=== PATIENT | female | born 1940 | race Caucasian/White ===

== ENCOUNTER 2019-09-17 21:58 | Inpatient (IN) ==
--- NOTE | 2019-09-17 21:46 | Diag Imaging Result Doc PS360 ---
CT HEAD/C-SPINE W/O CONTRAST - 09/17/2019 INDICATION: fall COMPARISON: None FINDINGS: Head CT: There is moderate diffuse ventriculomegaly. There is moderate periventricular white matter chronic microvascular ischemia. This also affects the christine. There is probably an old lacunar in the left basal ganglia. No intracranial mass or hemorrhage. The skull is intact. The sinuses are clear. Cervical spine: Alignment is anatomic. No fracture or subluxation. Vertebral body heights and intervertebral disc spaces are preserved. There is advanced multilevel disc and facet degeneration. No significant central canal stenosis. IMPRESSION: No acute injury. This exam was performed using automated exposure control, adjustment of mA or kV according to patient size, and/or use of iterative reconstruction technique Electronically signed by David Ptoter 09/17/2019 9:43 PM
[2019-09-17 22:02] LABS: BASO# 0.03 X1000 (0.0-0.2); BASO% 0.3 % (0.0-0.8); EOS# 0.32 X1000 (0.0-0.7); EOS% 3.1 % (0.0-10.0); HEMATOCRIT 36.2 % (37.0-47.0); LYMPH# 2.49 X1000 (1.2-3.4); LYMPH% 24.5 % (20.5-51.1); MCHC 30.4 g/dL (33-37); MCV 92.1 FL (81-99); MONO# 0.94 X1000 (0.11-0.59); MONO% 9.3 % (1.7-9.3); MPV 10.6 FL (7.4-10.4); NEUT# 6.28 X1000 (1.4-6.5); NEUT% 61.8 % (42.2-75.2); PLT 268 X1000 (130-400); RBC 3.93 XMIL (4.2-5.4); WBC 10.16 X1000 (4.8-10.8)
[2019-09-17 22:18] LABS: ESTIMATED GFR 40
[2019-09-17 22:26] LABS: AGAP 13; ALBUMIN 4.3 g/dL (3.5-5.0); ALKALINE PHOSPHATASE 76 U/L (32-104); BUN 41 mg/dL (8-22); CALCIUM 9.4 mg/dL (8.8-10.2); CHLORIDE 105 mmol/L (98-107); COSMO 295; CREATININE 1.3 mg/dL (0.5-0.9); GLUCOSE 134 mg/dL (70-104); GOT 8 U/L (10-30); GPT < 5 U/L (10-36); POTASSIUM 4.6 mmol/L (3.5-5.1); SODIUM 142 mmol/L (136-145); TCO2 25 mmol/L (25-35); TOTAL BILIRUBIN < 0.15 mg/dL (0.20-1.00); TOTAL PROTEIN 6.8 g/dL (6.3-8.3)
[2019-09-17 22:41] LABS: URINE SOURCE CLEAN CATCH
[2019-09-17 22:43] LABS: BILIRUBIN URINE NEGATIVE (NEGATIVE); BLOOD URINE TRACE (NEGATIVE); COLOR YELLOW; GLUCOSE URINE NEGATIVE (NEGATIVE); KETONE URINE NEGATIVE (NEGATIVE); LEUKOCYTES URINE MODERATE (NEGATIVE); NITRITE URINE POSITIVE (NEGATIVE); PROTEIN URINE NEGATIVE (NEGATIVE); SP GRAVITY URINE 1.022; TURBIDITY URINE CLEAR (CLEAR); UROBILINOGEN URINE NORMAL (NORMAL)
[2019-09-17 22:45] LABS: UR EPITHELIAL CELLS <10 /HPF (<10); URINE BACTERIA 4+ /HPF; URINE RBC <10 /HPF (<10); URINE WBC 20-40 /HPF (<10)
[2019-09-17] MEDS ORDERED: ASPIRIN PO ONE (22:47)
[2019-09-17] MEDS ORDERED: ROCEPHIN 1 GM in NS 50 ML IV ONE (23:53)
[2019-09-17] MEDS ORDERED: TYLENOL PO PRN (23:56)
--- NOTE | 2019-09-18 00:06 | PROVIDER DOCUMENTATION ---
This chart was entered by Savannah Presley Scribe, acting as scribe for Lake Melgar MD. HPI-Neurological Disorder - General Chief Complaint: Fall Stated Complaint: fall Time Seen by Provider: 09/17/19 22:00 Source: patient, family Allergies/Adverse Reactions: Patient Allergies Allergy/AdvReac Type Severity Reaction Status Date / Time codeine Allergy Unknown Verified 09/17/19 21:48 Home Medications: Home Medication List Medication Instructions Recorded Confirmed Last Taken Type Carbidopa/Levodopa 2 tab PO 4XDAY 09/17/19 09/17/19 Unknown History [Carbidopa-Levodopa 25-100 Tab] Esomeprazole Magnesium [Nexium] 20 mg PO DAILY 09/17/19 09/17/19 Unknown History Hydrochlorothiazide [Microzide] 12.5 mg PO DAILY 09/17/19 09/17/19 Unknown History Losartan Potassium 100 mg PO DAILY 09/17/19 09/17/19 Unknown History Ropinirole HCl 4 mg PO BID 09/17/19 09/17/19 Unknown History Venlafaxine HCl [Venlafaxine HCl 2 cap PO DAILY 09/17/19 09/17/19 Unknown History ER] - History of Present Illness-Neuro Nature of Presenting Problem: pt is a 79 yr old female presenting via EMS with post fall, pt was ambulating with walker, attempted to turn when she lost her balance, fell struck head on table and passed out. pt admits numbness to right arm and leg, no trouble speaking, no facial droop. pt denies headache, nausea. pt admits hx of parkinsons dz, tremors to right have stopped since fall. Severity: reports: moderate Onset/Duration: reports: this evening (2099) Timing: reports: still present Context: reports: found unresponsive by family, falling. denies: impaired speech Character of Altered Mental Status: reports: N/A Any recent trauma/injury?: reports: to head Character of Deficits: reports: altered sensation. denies: vision problem/glaucoma, impaired speech, impaired swallowing New weakness or altered sensation location:: reports: RUE, RLE Cognitive Baseline: alert, oriented x3 Gait Baseline: uses a walker Associated Symptoms: reports: other (numbness to RE, RLE). denies: slurred speech Similar Symptoms Previously?: No Recently seen or treated by another doctor?: No Review of Systems - Adult - REVIEW OF SYSTEMS - ADULT Constitutional: denies: chills, fever Eyes: denies: blurred vision, double vision Ears, Nose, Mouth & Throat: denies: ear pain, sinus problem, throat pain Cardiovascular: reports: syncope. denies: chest pain Respiratory: denies: cough, shortness of breath Gastrointestinal: denies: abdominal pain, nausea Genitourinary: reports: no symptoms reported Musculoskeletal: denies: back pain, joint pain, neck pain Integumentary: reports: no symptoms reported Neurological: reports: loss of balance, numbness (RUE, RLE), syncope. denies: dizziness/vertigo, headache/migraines, slurred speech Psychiatric: reports: no symptoms reported Endocrine: reports: no symptoms reported Hematologic/Lymphatic: reports: no symptoms reported Allergic/Immunologic: reports: no symptoms reported All Other Systems: Reviewed and Negative Past History - Adult - PAST MEDICAL HISTORY-ADULT Review of Records: reports: Nursing Assessment Review, Medications Reviewed, Social history reviewed & non-contributory. Major Childhood Illnesses: reports: denies history Cardiovascular: reports: denies history Respiratory: reports: denies history Gastrointestinal: reports: denies history Obstetrical/Gynecological: reports: denies history Genitourinary: reports: denies history Musculoskeletal: reports: denies history Neurological: reports: denies history Endocrine/Immune: reports: denies history Other Conditions: reports: denies history - IMMUNIZATION STATUS Childhood Immunizations: See Nurse Assessment Flu Vaccine: See Nurse Assessment - FAMILY HISTORY Family History: reviewed, not pertinent - SOCIAL HISTORY Smoking: denies Substance Use: denies Living Situation: family Physical Exam- Neurological - Physical Exam-Neuro Initial Vital Signs Reviewed: Yes General Appearance: appears well, alert, no apparent distress, obese Eye Exam: bilateral eye: normal inspection, PERRL HENMT: normocephalic/atraumatic, moist mucous membranes Head Injury: no evidence of injury Neck: non-tender, full range of motion, supple, normal inspection Respiratory: chest non-tender, lungs clear, normal breath sounds Cardiovascular: normal peripheral pulses, regular rate, rhythm, no edema Abdominal Exam: normal bowel sounds, non tender, soft Lymphatic: no adenopathy Peripheral Pulses: radial (R): 2+, radial (L): 2+ Extremity: normal range of motion, 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 negative: facial droop Motor/Sensory: pronator drift (R), sensory deficit (RUE, RLE decreased sensation) Neurologic: sensory deficit. negative: aphasia, motor weakness Integumentary: normal color, normal turgor, warm/dry Psych/Mental Status: normal mood/affect, normal thought content, normal thought process, oriented x 3 - Glascow Coma Scale Best Eye Response: (4) open spontaneously Best Verbal Response: (5) oriented Best Motor Response: (6) obeys commands Total Glascow Score: 15 Progress - PLAN OF CARE/RESULTS Progress/Plan/Lab Results: Vital Signs - 8 hr 09/17/19 21:23 Temperature 98.2 F Pulse Rate 87 Respiratory Rate 20 Blood Pressure 183/72 O2 Sat by Pulse Oximetry 97 Laboratory Results - last 24 hr 09/17/19 09/17/19 09/17/19 21:41 21:41 21:41 WBC 10.16 RBC 3.93 L Hgb 11.0 L Hct 36.2 L MCV 92.1 MCH 28.0 MCHC 30.4 L RDW Std Deviation 14.0 Plt Count 268 MPV 10.6 H Immature Gran % (Auto) 1.0 H Neut % (Auto) 61.8 Lymph % (Auto) 24.5 [place] % (Auto) 9.3 Eos % (Auto) 3.1 Baso % (Auto) 0.3 Immature Gran # (Auto) 0.10 H Neut # (Auto) 6.28 Lymph # (Auto) 2.49 [place] # (Auto) 0.94 H Eos # (Auto) 0.32 Baso # (Auto) 0.03 Sodium 142 Potassium 4.6 Chloride 105 Carbon Dioxide 25 Anion Gap 13 BUN 41 H Creatinine 1.3 H Estimated GFR/1.73 m2 40 BUN/Creatinine Ratio 32 Glucose 134 H Calculated Osmolality 295 Calcium 9.4 Total Bilirubin < 0.15 L AST 8 L ALT < 5 L Alkaline Phosphatase 76 Troponin T High Sens 16 Total Protein 6.8 Albumin 4.3 Globulin 3.0 Albumin/Globulin Ratio 2.0 Urine Source Urine Color Urine Turbidity Urine pH Ur Specific [place] Urine Protein Ur Glucose (Stick) Ur Ketones (Stick) Urine Blood Urine Nitrite Urine Bilirubin Urobilinogen Dipstick Urine Leukocytes Urine WBC (Auto) Urine RBC (Auto) U Epithel Cells (Auto) Urine Bacteria (Auto) 09/17/19 22:36 WBC RBC Hgb Hct MCV MCH MCHC RDW Std Deviation Plt Count MPV Immature Gran % (Auto) Neut % (Auto) Lymph % (Auto) [place] % (Auto) Eos % (Auto) Baso % (Auto) Immature Gran # (Auto) Neut # (Auto) Lymph # (Auto) [place] # (Auto) Eos # (Auto) Baso # (Auto) Sodium Potassium Chloride Carbon Dioxide Anion Gap BUN Creatinine Estimated GFR/1.73 m2 BUN/Creatinine Ratio Glucose Calculated Osmolality Calcium Total Bilirubin AST ALT Alkaline Phosphatase Troponin T High Sens Total Protein Albumin Globulin Albumin/Globulin Ratio Urine Source CLEAN CATCH Urine Color YELLOW Urine Turbidity CLEAR Urine pH 5.0 Ur Specific [place] 1.022 Urine Protein NEGATIVE Ur Glucose (Stick) NEGATIVE Ur Ketones (Stick) NEGATIVE Urine Blood TRACE A Urine Nitrite POSITIVE A Urine Bilirubin NEGATIVE Urobilinogen Dipstick NORMAL Urine Leukocytes MODERATE A Urine WBC (Auto) 20-40 A Urine RBC (Auto) <10 U Epithel Cells (Auto) <10 Urine Bacteria (Auto) 4+ Orders Category Date Time Status Admit - [facility] Routine AdmDCTranf 09/17/19 23:53 Active Activity - Strict Bedrest ORDERED Care 09/17/19 23:56 Active Call Admitting on Arrival AT ADMISSION Care 09/17/19 23:56 Active Neurological Check Q2H Care 09/17/19 23:56 Active Vital Signs Order ROUTINE Care 09/17/19 23:56 Active Z-Document. for Tele Applied ORDERED Care 09/17/19 23:58 Active Heart Healthy Diet Diet 09/17/19 23:[address] HEAD/C-SPINE W/O CONTRAST [CT] Stat Exams 09/17/19 21:10 Completed CBC WITH ELECTRONIC DIFF [HEME] Stat Lab 09/17/19 21:41 Completed COMPREHENSIVE METABOLIC PANEL [CHEM] Stat Lab 09/17/19 21:41 Completed TROPONIN T HIGH SENSITIVITY Stat Lab 09/17/19 21:41 Completed URINALYSIS W/POSS RFLX CULT [URINALYSIS] Stat Lab 09/17/19 22:36 Completed URINE CULTURE [RM] Routine Lab 09/17/19 23:45 Ordered Acetaminophen [Tylenol] Med 09/17/19 23:56 Ordered 650 mg PO Q6H PRN PRN Aspirin Med 09/18/19 09:00 Ordered 325 mg PO DAILY Aspirin Med 09/17/19 22:47 Discontinued 325 mg PO NOW ONE CefTRIAXONE [Rocephin] 1 gm Med 09/17/19 23:53 Active 0.9% Sodium Chloride Inj [Ns] 50 ml IV NOW Oxygen Device Routine Oth 09/17/19 23:57 Active Telemetry [OM.EQ] Routine Oth 09/17/19 23:56 Active EKG [EKG] Stat Ther 09/17/19 21:27 Ordered Transfer/Admit Order [TRANSFER] Routine Transfer 09/17/19 23:54 Ordered Result Diagrams: 09/17/19 21:41 09/17/19 21:41 - EKG 1 Time of EKG reading by physician:: 21:34 EKG Read and Signed by:: Lake Melgar EKG Interpretation (*Must complete 3 of following elements*): Abnormal (inferior infarct-age undetermined) Rate: 84 Rhythm: nsr Anderson: normal QRS: normal OK Interval: normal ST Wave: normal - CT/MRI 1 CT Study: Cervical Spine, Head Impression: Abnormal (Signed CT HEAD/C-SPINE W/O CONTRAST - 09/17/2019 INDICATION: fall COMPARISON: None FINDINGS: Head CT: There is moderate diffuse ventriculomegaly. There is moderate periventricular white matter chronic microvascular ischemia. This also affects the christine. There is probably an old lacunar in the left basal ganglia. No intracranial mass or hemorrhage. The skull is intact. The sinuses are clear. Cervical spine: Alignment is anatomic. No fracture or subluxation. Vertebral body heights and intervertebral disc spaces are preserved. There is advanced multilevel disc and facet degeneration. No significant central canal stenosis. IMPRESSION: No acute injury. This exam was performed using automated exposure control, adjustment of mA or kV according to patient size, and/or use of iterative reconstruction technique Electronically signed by David Potter 09/17/2019 9:43 PM 09/17/192142 Interpreting Physician: David Potter MD Dictated Date/Time: 09/17/192130 cc: Lake Melgar MD;) Comparison with other Films: no prior study - CONSULTS/PCP/HOSPITALIST Notification #1 *Consult/PCP/Hospitalist*: Dr Char Time Discussed: 23:30 Consult Disposition: Admit #2 Consult: Neurologist at Time Discussed: 22:15 Reason/Comments: advised no TPA Departure - Departure Date of Disposition Decision: 09/18/19 Time of Disposition Decision: 00:00 DIAGNOSIS: CVA (cerebral vascular accident), UTI (urinary tract infection), Renal insufficiency, Collapse Disposition: ADMITTED INPATIENT 09 Certified Medical Emergency: Emergent Condition: Fair Referrals and Follow-Ups: None,PCP [Primary Care Provider] - - Critical Care Note This patient required my direct & personal management of CC.: No Attestation - Physician/ HI Attestation Patient care was provided by Advanced Practice Provider:: No The physician spent face to face time with patient:: Yes Advanced Practice Provider documentation review:: Supervising physician onsite and consulted in the evaluation and care of this patient. The physician did have a face to face encounter with the patient. This chart was documented by the indicated scribe, (Savannah Presley, Scribcel[place]) and accurately reflects the services I performed and decisions made by me, Lake Melgar MD, as attested by the provider's signature.
--- NOTE | 2019-09-18 01:07 | EKG Report ---
Test Performed on : 09/17/2019 9:31:08 PM Test Reason : weakness Blood Pressure : / mmHG Vent. Rate : 089 BPM Atrial Rate : 089 BPM P-R Int : 156 ms QRS Dur : 080 ms QT Int : 370 ms P-R-T Axes : 037 -01 053 degrees QTc Int : 450 ms Undetermined rhythm Otherwise normal ECG No previous ECGs available Unconfirmed Result
--- NOTE | 2019-09-18 09:55 | Diag Imaging Result Doc PS360 ---
EXAM: MRI BRAIN W/O CONTRAST HISTORY: r/o cva TECHNIQUE: Multisequence, multiplanar images of the brain were obtained without contrast as per standard protocol. COMPARISON: None. FINDINGS: There are no extra-axial collections. Diffusion images show a 1 cm focus of restricted diffusion left thalamus consistent with acute infarct. There is no evidence for hemorrhage. There is extensive central atrophy with ventricular dilatation and deep white matter periventricular hyperintensities nonspecific but statistically sequelae of microvascular disease . IMPRESSION: 1.1 cm acute infarct left thalamus. 2.Marked atrophy and microvascular disease. Electronically signed by Mary Ann Lee 09/18/2019 9:53 AM
[2019-09-18] MEDS: SINEMET 25/100 PO SCH ×4 (10:16→20:34)
[2019-09-18] MEDS: NEXIUM PACKET PO SCH (10:16)
[2019-09-18] MEDS: REQUIP PO SCH ×2 (10:16→20:34)
[2019-09-18] MEDS: EFFEXOR XR PO SCH (10:16)
[2019-09-18] MEDS: ASPIRIN PO SCH (10:16)
[2019-09-18] MEDS: NS 1,000 ML IV SCH ×2 (10:17→23:29)
--- NOTE | 2019-09-18 12:06 | HISTORY AND PHYSICAL ---
PRIMARY CARE PHYSICIAN: Dr. Pereira in [place]. CHIEF COMPLAINT: Fall with syncopal episode. HISTORY OF PRESENT ILLNESS: Ms. Laguerre is a 79-year-old female, who presents with past medical history of Parkinson disease, GERD, depression, and hypertension. The patient presents to the ER during the night, and stated she was ambulating with her walker and, when she was attempting to turn, she lost her balance. She did fall and strike her head on a table and she passed out. When she did awaken, she states she had some numbness to her right arm and leg. She was not having any trouble speaking. She did not have any facial droop. She was also noted to have some weakness to the right arm. The patient denies any cough, congestion, fever, chills, flu-like symptoms, dizziness, neck pain, stiffness, excessive thirst, chest pain, palpitations, orthopnea, PND, leg edema, dyspnea, nausea, vomiting, melena, diarrhea, constipation, dysuria, hematuria, muscle pain or any other pertinent symptoms at this time. REVIEW OF SYSTEMS: A 10 point review of systems has been obtained and are negative, except for what is stated above in the HPI. PAST MEDICAL HISTORY: 1. Parkinson disease. 2. GERD. 3. Situational depression. 4. Hypertension. PAST SURGICAL HISTORY: Right hip surgery x3 and right foot surgery. FAMILY HISTORY: Noncontributory. SOCIAL HISTORY: Patient does live with her . She denies any smoking, alcohol or illicit drug use. She does use a walker for ambulation. ALLERGIES: Codeine. HOME MEDICATIONS: 1. Nexium 20 mg p.o. daily. 2. Hydrochlorothiazide 12.5 mg p.o. daily. 3. Losartan/potassium 100 mg p.o. daily. 4. Ropinirole HCL 4 mg p.o. b.i.d. 5. Venlafaxine HDL 37.5 mg 2 caps p.o. daily. 6. Carbidopa/levodopa 25/100 two tablets p.o. 4 times a day. PHYSICAL EXAMINATION: VITAL SIGNS: Temperature 98.0 degrees, pulse rate 78, respiratory rate 16, blood pressure 157/61, O2 saturation 99% on room air. GENERAL: This is a 79-year-old female. She is lying in the hospital bed. She is in no acute distress. She is well nourished and well developed. HEENT: Atraumatic, normocephalic. Pupils equal, round, reactive to light. Mucous membranes are dry. NECK: Supple. No lymphadenopathy. Trachea is midline. No JVD. CV: Regular rate and rhythm. No murmurs, gallops, or rubs appreciated. RESPIRATORY: Lung sounds clear. Equal chest excursion. Respirations nonlabored. No accessory muscle usage. GI/ABDOMEN: Soft, nontender, nondistended. Bowel sounds present x4. : No CVA tenderness noted. Patient voiding without difficulty. NEUROLOGIC: The patient is awake. She is alert. She is oriented to person and place and situation. MUSCULOSKELETAL: The patient has decreased strength to the right arm. There are tremors noted in the upper extremities. All other strength fully intact. The patient does not have a facial droop. She has not complained of any numbness. EXTREMITIES: No clubbing, no cyanosis, no edema. DP and PT pulses are present and palpable. SKIN: Warm, dry, intact. No rashes. No bruises. No diaphoresis. LABORATORY AND DIAGNOSTICS: White blood cell count 10.16, hemoglobin 11, hematocrit 36.2, platelet count 268. Sodium 142, potassium 4.6, BUN 41, creatinine 1.3, glucose 134. Urinalysis does show positive nitrite, a positive amount of leukocytes. It does show 20 to 40 white blood cells and 4+ bacteria. CT of the head was performed in the ER. It did show no acute intracranial injury. MRI was ordered while patient was on the floor this morning; it did show a 1 cm acute infarct to the left thalamus and marked atrophy and microvascular disease. ASSESSMENT: 1. Fall with syncopal episode. 2. Acute cerebrovascular accident. 3. Urinary tract infection. 4. Fluid volume deficit 5. Parkinson disease. 6. Hypertension. 7. Gastroesophageal reflux disease. 8. Situational depression. PLAN: The patient was admitted to the medical floor during the night. The patient does have vital signs routine. She has been placed on classroom monitor. We provided her with a healthy heart diet. MRI was obtained. It is positive for a CVA. We are going to do a carotid ultrasound. Urine culture has been obtained. We have started the patient on Rocephin 1 gram intravenous every 24 hours. I have started the patient on IV fluid hydration, normal saline at 75 mL an hour. The patient has been provided with an aspirin p.o. daily. I have resumed her home medications. She does have SCDs for DVT prophylaxis. The patient is on Nexium per home dose for GI prophylaxis. We have consulted Fur Dressing Supervisor for discharge planning. I will repeat her labs for in the morning, and all other further treatment pending hospital course and laboratory data. Dictated by VLADISLAV Donaldson for Aaron Pardo MD cc: MD Gilda Cook MD [facility]ALTH CENTERLiza
--- NOTE | 2019-09-18 16:25 | Vascular Study Report ---
EXAM: Carotid Ultrasound HISTORY: new cva TECHNIQUE: Grayscale, duplex, and color Doppler evaluation was performed of the carotid arteries bilaterally. Standard protocol. COMPARISON: None. FINDINGS: There is no significant atherosclerotic plaque. There are no velocity elevations to suggest hemodynamically significant carotid artery stenosis. ICA/CCA ratios are within normal limits. Bilateral vertebral arterial flow is antegrade. IMPRESSION: No evidence for hemodynamically significant carotid artery stenosis. Estimated stenosis is less than 50% bilaterally. Electronically signed by Mary Ann Lee 09/18/2019 4:23 PM
[2019-09-18] MEDS: ROCEPHIN 1 GM in NS 50 ML IV SCH (23:30)
--- NOTE | 2019-09-19 01:27 | HISTORY AND PHYSICAL ---
ADDENDUM: Patient seen and examined by myself. Full note dictated and discussed with nurse practitioner. The patient presented to the hospital after having a fall at home. She is having some right arm and leg numbness. She does have a history of Parkinson disease, and would expect Parkinson dementia as well. We are going to admit her to the hospital, place her on fluids. We will follow. We will restart her home medications. We will check MRI once available. cc: Aaron Pardo MD
[2019-09-19 06:09] LABS: HEMATOCRIT 34.8 % (37.0-47.0); HEMOGLOBIN 10.5 g/dL (12.0-16.0); MCH 27.6 PG (27-31); MCHC 30.2 g/dL (33-37); MCV 91.3 FL (81-99); MPV 10.3 FL (7.4-10.4); RBC 3.81 XMIL (4.2-5.4); RDW 13.9 % (11.5-14.5); WBC 7.9 X1000 (4.8-10.8)
[2019-09-19 06:25] LABS: AGAP 10; BUN 25 mg/dL (8-22); CALCIUM 8.8 mg/dL (8.8-10.2); CHLORIDE 108 mmol/L (98-107); COSMO 287; CREATININE 0.8 mg/dL (0.5-0.9); ESTIMATED GFR > 60; GLUCOSE 90 mg/dL (70-104); POTASSIUM 4.2 mmol/L (3.5-5.1); SODIUM 142 mmol/L (136-145); TCO2 24 mmol/L (25-35)
[2019-09-19] MEDS: NEXIUM PACKET PO SCH (10:18)
[2019-09-19] MEDS: ASPIRIN PO SCH (10:19)
[2019-09-19] MEDS: HYDROCHLOROTHIAZIDE PO SCH (10:19)
[2019-09-19] MEDS: SINEMET 25/100 PO SCH ×4 (10:19→20:10)
[2019-09-19] MEDS: COZAAR PO SCH (10:19)
[2019-09-19] MEDS: EFFEXOR XR PO SCH (10:19)
[2019-09-19] MEDS: REQUIP PO SCH ×2 (10:19→20:11)
[2019-09-19] MEDS: NS 1,000 ML IV SCH (12:07)
[2019-09-19] MEDS: LIPITOR PO SCH (20:11)
--- NOTE | 2019-09-19 22:04 | PROGRESS NOTE ---
DATE: 09/19/2019 SUBJECTIVE: Patient is still confused, disoriented, does not answer questions or follow commands. OBJECTIVE: Temperature 97.7, pulse 70, respiratory rate 18, blood pressure 185/61.HEENT: Normocephalic. Neck: Supple. Cardiovascular: Regular rate. Chest: Clear nonlabored. Abdomen: Soft. Extremities: Moves all extremities. Neurologic: No changes. ASSESSMENT: 1. Gram-negative belgica urinary tract infection. 2. Acute cerebrovascular accident with a 1 cm infarct in the left thalamus. 3. Parkinson's. 4. Hypertension. 5. High cholesterol. 6. Acute renal failure, resolved. PLAN: We are going to continue patient in the hospital. Continue Rocephin for her gram-negative rods. Continue physical therapy and we will follow. cc: Aaron Pardo MD
[2019-09-19] MEDS: ROCEPHIN 1 GM in NS 50 ML IV SCH (22:54)
[2019-09-20] MEDS: NS 1,000 ML IV SCH ×2 (00:42→15:02)
[2019-09-20] MEDS: ASPIRIN PO SCH (10:23)
[2019-09-20] MEDS: HYDROCHLOROTHIAZIDE PO SCH (10:23)
[2019-09-20] MEDS: COZAAR PO SCH (10:23)
[2019-09-20] MEDS: REQUIP PO SCH ×2 (10:23→23:52)
[2019-09-20] MEDS: NEXIUM PACKET PO SCH (10:24)
[2019-09-20] MEDS: SINEMET 25/100 PO SCH ×4 (10:24→23:52)
[2019-09-20] MEDS: EFFEXOR XR PO SCH (10:26)
[2019-09-20] MEDS: MBX SOLUTION MT PRN (16:23)
[2019-09-20] MEDS: ROCEPHIN 1 GM in NS 50 ML IV SCH (23:52)
[2019-09-20] MEDS: LIPITOR PO SCH (23:52)
--- NOTE | 2019-09-20 23:59 | PROGRESS NOTE ---
DATE: 09/20/2019 SUBJECTIVE: The patient is confused, disoriented, although pleasant. PHYSICAL EXAMINATION: Temperature 98 degrees, pulse 93, respiratory rate 18, BP 156/73. General: The patient is pleasant. She is still disoriented, although does appear to be slightly stronger today. HEENT: Normocephalic. Neck: Supple. Cardiovascular: Regular rate. Chest: Clear. Abdomen: Soft. Extremities: Moves all extremities. ASSESSMENT: 1. Klebsiella urinary tract infection, currently pansensitive. 2. High cholesterol. 3. Acute on chronic renal failure, resolved. Creatinine is 1.3 at admit, currently 0.8. 4. Parkinson's disease. 5. Hypertension. 6. Situational depression. PLAN: We are going to continue the patient in the hospital. Continue Rocephin for now. We will consider changing over to p.o. antibiotics. Continue to follow her confusion, disorientation. Hopefully, this will improve as her infection resolves. If not, she certainly may require rehab. cc: Aaron Pardo MD
[2019-09-21] MEDS: NS 1,000 ML IV SCH (07:34)
[2019-09-21] MEDS: SINEMET 25/100 PO SCH ×4 (10:42→22:20)
[2019-09-21] MEDS: REQUIP PO SCH ×2 (10:42→22:20)
[2019-09-21] MEDS: ASPIRIN PO SCH (10:42)
[2019-09-21] MEDS: NEXIUM PACKET PO SCH (10:42)
[2019-09-21] MEDS: EFFEXOR XR PO SCH (10:43)
[2019-09-21] MEDS: HYDROCHLOROTHIAZIDE PO SCH (10:53)
[2019-09-21] MEDS: COZAAR PO SCH (10:53)
[2019-09-21] MEDS: LEVAQUIN PO SCH (11:49)
[2019-09-21] MEDS: MBX SOLUTION MT PRN (14:27)
--- NOTE | 2019-09-21 18:47 | PROGRESS NOTE ---
DATE: 09/21/2019 SUBJECTIVE: Patient currently has no complaints, states that she is feeling better. She is much more awake and alert. PHYSICAL EXAMINATION: Temperature 98 degrees, pulse 74, respiratory rate 18, BP 158/60.General: Patient is much more awake, alert, oriented. She is pleasant. HEENT: Normocephalic, atraumatic. MAGDY. Neck: Supple. Cardiovascular: Regular rate. No murmurs. Chest: Clear, nonlabored. Abdomen: Soft, nondistended. ASSESSMENT: 1. Klebsiella urinary tract infection. We will switch her over to Levaquin. 2. Acute metabolic encephalopathy, appears resolved. 3. Parkinson's with likely Parkinson's dementia. 4. Hypertension. 5. Situational depression. 6. Hypercholesterolemia. 7. Acute renal failure, resolved. Creatinine is decreased from 1.3 to 0.8. PLAN: We will continue patient in the hospital. Now that she is awake, alert, we will get this cleared. Hopefully she can continue to ambulate and can hopefully discharge home soon. cc: Aaron Pardo MD
[2019-09-21] MEDS: LIPITOR PO SCH (22:20)
[2019-09-22] MEDS: COZAAR PO SCH (08:52)
[2019-09-22] MEDS: HYDROCHLOROTHIAZIDE PO SCH (08:52)
[2019-09-22] MEDS: LEVAQUIN PO SCH (08:52)
[2019-09-22] MEDS: NEXIUM PACKET PO SCH (08:52)
[2019-09-22] MEDS: REQUIP PO SCH ×2 (08:52→20:31)
[2019-09-22] MEDS: ASPIRIN PO SCH (08:52)
[2019-09-22] MEDS: SINEMET 25/100 PO SCH ×4 (08:52→20:31)
[2019-09-22] MEDS: EFFEXOR XR PO SCH (08:52)
[2019-09-22] MEDS: MBX SOLUTION MT PRN (16:05)
--- NOTE | 2019-09-22 18:05 | PROGRESS NOTE ---
DATE: 09/22/2019 SUBJECTIVE: Patient notes that she is feeling tremendously better. Denies any fevers, chills. Denies any coughing. OBJECTIVE: Vital signs: Temperature 97.8, pulse 84, respiratory rate 18, BP 165/67. General: Patient is pleasant. She is able to ambulate some on her own, although does require assistance. HEENT: Normocephalic. Neck: Supple. Cardiovascular: Regular rate. Chest: Clear. Abdomen: Soft. Extremities: Moves all extremities. ASSESSMENT: 1. Klebsiella urinary tract infection, sensitive to Levaquin as well as Rocephin. 2. Hypercholesterolemia, on Lipitor. 3. Acute renal failure, resolved. 4. Fall with syncope. 5. Acute cerebrovascular accident, improved. 6. Parkinson. 7. Metabolic encephalopathy secondary to her urinary tract infection, resolved. 8. Situational depression. PLAN: We are going to continue the patient in the hospital. Continue physical therapy. Hopefully to rehab soon. cc: Aaron Pardo MD
[2019-09-22] MEDS: LIPITOR PO SCH (20:31)
[2019-09-23 05:46] VITALS: BP 159/71
--- NOTE | 2019-09-23 09:36 | DISCHARGE SUMMARY ---
ADMISSION DATE: 09/18/2019 DISCHARGE DATE: 09/23/2019 PRIMARY CARE PHYSICIAN: Dr. Gilda Pereira. ADMISSION DIAGNOSES: 1. Fall with syncopal episode. 2. Acute cerebrovascular accident. 3. Urinary tract infection. 4. Fluid volume deficit. 5. Parkinson's disease. 6. Hypertension. 7. Gastroesophageal reflux disease. 8. Situational depression. DISCHARGE DIAGNOSES: 1. Klebsiella urinary tract infection. 2. Hypercholesterolemia. 3. Acute renal failure, resolved. 4. Fall with syncope. 5. Acute cerebrovascular accident, improved. 6. Parkinson's. 7. Metabolic encephalopathy secondary to the urinary tract infection, now resolved. 8. Situational depression. SUMMARY OF FINDINGS: This is a 79-year-old female who presented to the ER after she states she was ambulating with her walker, was attempting to turn, and lost her balance, fell, and did strike her head on a table and passed out. When she woke up, she had some numbness in her right arm and leg, but was not having any trouble speaking, no facial droop, had some weakness in her right arm. We obtained a head CT that showed no acute injury. We did a brain MRI on 09/18/2019 that showed a 1 cm acute infarct in the left thalamus. Carotid Doppler study showed no evidence for hemodynamically significant carotid artery stenosis. Estimated stenosis is less than 50% bilaterally. She has been being treated appropriately for her Klebsiella urinary tract infection. Physical Therapy was consulted. She is able to eat a healthy heart diet, so it is now felt that she can safely be discharged to rehab today. DISCHARGE MEDICATIONS: Levofloxacin 500 mg p.o. daily for 7 days, Tylenol 650 mg p.o. every 6 hours p.r.n., atorvastatin 20 mg p.o. at bedtime, Nexium 20 mg p.o. daily, hydrochlorothiazide 12.5 mg p.o. daily, losartan 100 mg p.o. daily, ropinirole 4 mg p.o. b.i.d., venlafaxine 75 mg 2 capsules p.o. daily, carbidopa/levodopa 25/100 two tablets 4 times daily. FOLLOWUP: She will follow up with her primary care physician once she has completed her rehab stay. All discharge instructions have been reviewed with the patient, and she verbalizes understanding. TIME SPENT: A 35-minute discharge. Dictated by VLADISLAV Shaffer for Ortega Lakhani MD cc: VLADISLAV Shaffer MD Lindsay E. Smith, MD
[2019-09-23] MEDS: ASPIRIN PO SCH (09:40)
[2019-09-23] MEDS: COZAAR PO SCH (09:40)
[2019-09-23] MEDS: LEVAQUIN PO SCH (09:40)
[2019-09-23] MEDS: EFFEXOR XR PO SCH (09:40)
[2019-09-23] MEDS: HYDROCHLOROTHIAZIDE PO SCH (09:40)
[2019-09-23] MEDS: NEXIUM PACKET PO SCH (09:40)
[2019-09-23] MEDS: REQUIP PO SCH (09:41)
[2019-09-23] MEDS: SINEMET 25/100 PO SCH (09:41)
--- NOTE | 2019-09-23 09:58 | Diag Imaging Result Doc PS360 ---
EXAM: CHEST-PORTABLE HISTORY: rehab TECHNIQUE: Single view of the chest was performed portably. COMPARISON: 05/09/2019 FINDINGS: There is cardiomegaly. There is mild vascular congestion and peribronchial cuffing. No focal consolidation. No effusion. Linear atelectasis or scarring peripheral left lung. IMPRESSION: Cardiomegaly with mild vascular congestion and peribronchial thickening. No focal consolidation . Electronically signed by Mary Ann Lee 09/23/2019 9:56 AM
--- NOTE | 2019-09-24 08:15 | DISCHARGE SUMMARY ---
ADMISSION DATE: 09/18/2019 DISCHARGE DATE: 09/23/2019 ADDENDUM: Patient was seen and examined by myself. She was admitted to the hospital after a syncopal episode. She was confused, disoriented. She was subsequently diagnosed with a urinary tract infection that grew Klebsiella that is sensitive to Levaquin. After a couple days of antibiotics and fluids, she was awake, alert, oriented. Her Parkinson's still created some difficulty due to ambulation. Her acute kidney failure resolved. She is medically stable and we are going to transition to rehab. cc: Aaron Pardo MD
== END 2019-09-23 12:15 | DRG 64 ==
LOC: P.ED 21:58 → P.MEDSURG 09-18 00:12
PROVIDERS: ATTEND Family Medicine